=== PATIENT | female | born 1990 | race Caucasian/White ===

== ENCOUNTER 2017-04-07 13:51 | Emergency (ER) | payer OTHER ==
[2017-04-07] MEDS: ACETAMINOPHEN 325 MG TAB PO (17:10)
[2017-04-07] MEDS: METOCLOPRAMIDE 10 MG TAB PO (17:11)
[2017-04-07 17:17] LABS: URINE BLOOD (Dip) POC Negative (NEGATIVE); URINE GLUCOSE (Dip) POC Negative (NEGATIVE); URINE KETONES (Dip) POC Negative (NEGATIVE); URINE LEUKOCYTE EST (Dip) POC 1+ (NEGATIVE); URINE NITRITE (Dip) POC Negative (NEGATIVE); URINE TOTAL PROTEIN POC Negative (NEGATIVE)
[2017-04-07 17:17] LABS: URINE PH (Dip) POC 5.5 (5.0-8.5)
== END 2017-04-07 18:59 | disposition home or self-care (01) ==
LOC: FTE 13:51
DX: R11.2 Nausea with vomiting, unspecified (principal); R19.7 Diarrhea, unspecified
CPT/HCPCS: 81003; 99284

== ENCOUNTER 2017-12-01 19:01 | Emergency (ER) | payer OTHER ==
[2017-12-01] MEDS: ACETAMINOPHEN 500 MG TAB PO (22:44)
[2017-12-01] MEDS: FAMOTIDINE 20 MG TAB PO (22:44)
[2017-12-01] MEDS: ONDANSETRON (ODT) 4 MG TAB ODT (22:44)
[2017-12-01 22:56] LABS: ADD MAN DIFF? NO
[2017-12-01 22:59] LABS: WHITE BLOOD COUNT 12.1 10^3/ul (4.8-10.8)
[2017-12-01 22:59] LABS: BASOPHIL # 0.1 10^3/ul (0.0-0.1); BASOPHILS % 0.6 % (0.0-2.0); EOSINOPHILS # 0.5 10^3/ul (0.0-0.5); EOSINOPHILS % 3.7 % (0.0-7.0); HEMATOCRIT 39.8 % (37.0-47.0); HEMOGLOBIN 13.3 g/dl (12.0-16.0); LYMPHOCYTES # 4.5 10^3/ul (0.8-2.9); LYMPHOCYTES % 37.4 % (15.0-51.0); MEAN CORPUSCULAR HEMOGLOBIN 28.9 pg (29.0-33.0); MEAN CORPUSCULAR HGB CONC 33.4 g/dl (32.0-37.0); MEAN CORPUSCULAR VOLUME 86.3 fl (82.0-101.0); MEAN PLATELET VOLUME 11.1 fl (7.4-10.4); MONOCYTE # 0.8 10^3/ul (0.3-0.9); MONOCYTES % 6.2 % (0.0-11.0); NEUTROPHIL # 6.3 10^3/ul (1.6-7.5); NEUTROPHILS % 51.9 % (39.0-77.0); PLATELET COUNT 288 10^3/UL (140-415); RED BLOOD COUNT 4.61 10^6/ul (4.20-5.40); RED CELL DISTRIBUTION WIDTH 12.4 % (11.5-14.5)
[2017-12-01 23:18] LABS: ADD UMIC YES; UR ASCORBIC ACID NEGATIVE (NEGATIVE); UR BACTERIA MODERATE /HPF (NONE SEEN); UR BILIRUBIN (Dip) NEGATIVE (NEGATIVE); UR BLOOD (Dip) NEGATIVE (NEGATIVE); UR CLARITY SLIGHTLY CLOUDY (CLEAR); UR COLOR YELLOW (YELLOW); UR GLUCOSE (Dip) NEGATIVE (NEGATIVE); UR KETONES (Dip) NEGATIVE (NEGATIVE); UR LEUKOCYTE ESTERASE (Dip) 2+ Leu/ul (NEGATIVE); UR MUCUS MANY /HPF (NONE SEEN); UR NITRITE (Dip) POSITIVE (NEGATIVE); UR RBC 1 /HPF (0-5); UR SPECIFIC GRAVITY (Dip) 1.027 (1.003-1.030); UR SQUAMOUS EPITHELIAL CELL FEW /HPF (FEW); UR TOTAL PROTEIN (Dip) NEGATIVE (NEGATIVE); UR UROBILINOGEN (Dip) 1+ mg/dL (NEGATIVE); UR WBC 15 /HPF (0-5)
== END 2017-12-02 01:54 | disposition home or self-care (01) ==
LOC: FTE 12-02 01:54
DX: O23.11 Infections of bladder in pregnancy, first trimester (principal); R10.2 Pelvic and perineal pain; Z3A.01 Less than 8 weeks gestation of pregnancy
CPT/HCPCS: 36415; 76801; 81001; 81025; 84702; 85025; 86900; 86901; 99284-25

== ENCOUNTER 2018-04-24 16:49 | Inpatient (IN) | payer OTHER ==
[2018-04-24 18:34] LABS: ADD MAN DIFF? NO
[2018-04-24 18:41] LABS: BASOPHILS % 0.4 % (0.0-2.0); EOSINOPHILS # 0.1 10^3/ul (0.0-0.5); EOSINOPHILS % 0.6 % (0.0-7.0); HEMATOCRIT 32.4 % (37.0-47.0); HEMOGLOBIN 10.9 g/dl (12.0-16.0); LYMPHOCYTES # 0.8 10^3/ul (0.8-2.9); LYMPHOCYTES % 7.1 % (15.0-51.0); MEAN CORPUSCULAR HEMOGLOBIN 29.5 pg (29.0-33.0); MEAN CORPUSCULAR HGB CONC 33.6 g/dl (32.0-37.0); MEAN CORPUSCULAR VOLUME 87.6 fl (82.0-101.0); MEAN PLATELET VOLUME 11.5 fl (7.4-10.4); MONOCYTE # 0.6 10^3/ul (0.3-0.9); MONOCYTES % 5.4 % (0.0-11.0); NEUTROPHIL # 9.3 10^3/ul (1.6-7.5); NEUTROPHILS % 85.9 % (39.0-77.0); PLATELET COUNT 207 10^3/UL (140-415); RED CELL DISTRIBUTION WIDTH 12.5 % (11.5-14.5)
[2018-04-24 18:41] LABS: WHITE BLOOD COUNT 10.9 10^3/ul (4.8-10.8)
[2018-04-24 19:01] LABS: ALANINE AMINOTRANSFERASE 27 IU/L (13-69); ALBUMIN 3.5 g/dl (3.3-4.9); ALBUMIN/GLOBULIN RATIO 1.09; ALKALINE PHOSPHATASE 130 IU/L (42-121); ANION GAP 8 (5-13); ASPARTATE AMINO TRANSFERASE 26 IU/L (15-46); BILIRUBIN,INDIRECT 0.2 mg/dl (0-1.1); BILIRUBIN,TOTAL 0.2 mg/dl (0.2-1.3); BLOOD UREA NITROGEN 6 mg/dl (7-20); CALCIUM 8.9 mg/dl (8.4-10.2); CARBON DIOXIDE 22 mmol/L (21-31); CHLORIDE 104 mmol/L (97-110); CREATININE 0.41 mg/dl (0.44-1.00); Estimated GFR > 60 mL/min (>60); GLUCOSE 91 mg/dl (70-220); POTASSIUM 3.7 mmol/L (3.5-5.1); SODIUM 134 mmol/L (135-144); TOTAL PROTEIN 6.7 g/dl (6.1-8.1)
[2018-04-24 19:04] LABS: INR 1.02; PROTIME 13.5 Sec (11.9-14.9); PT RATIO 1.1; UR BACTERIA FEW /HPF (NONE SEEN); UR RBC 0 /HPF (0-5); UR WBC 1 /HPF (0-5)
[2018-04-24 19:05] LABS: PARTIAL THROMBOPLASTIN TIME 30.3 Sec (23.0-35.0)
[2018-04-24] MEDS: LACTATED RINGER'S 1,000 ML IV ×2 (19:14→19:17)
[2018-04-24 19:24] LABS: ADD UMIC YES; UR ASCORBIC ACID 20 mg/dL (NEGATIVE); UR BILIRUBIN (Dip) NEGATIVE (NEGATIVE); UR BLOOD (Dip) NEGATIVE (NEGATIVE); UR CLARITY CLEAR (CLEAR); UR COLOR YELLOW (YELLOW); UR GLUCOSE (Dip) NEGATIVE (NEGATIVE); UR KETONES (Dip) TRACE mg/dL (NEGATIVE); UR LEUKOCYTE ESTERASE (Dip) NEGATIVE Leu/ul (NEGATIVE); UR NITRITE (Dip) POSITIVE (NEGATIVE); UR SPECIFIC GRAVITY (Dip) 1.013 (1.003-1.030); UR TOTAL PROTEIN (Dip) NEGATIVE (NEGATIVE); UR UROBILINOGEN (Dip) 1+ mg/dL (NEGATIVE)
[2018-04-24] MEDS: FAMOTIDINE 20 MG INJ IV (21:14)
[2018-04-24 21:18] LABS: RAPID PLASMA REAGIN NONREACTIVE (NR)
[2018-04-24] MEDS: DEXTROSE 5%-0.45% NACL 1,000 ML IV (21:19)
[2018-04-24] MEDS: ONDANSETRON 4 MG INJ IV (21:26)
[2018-04-24] MEDS: CEFTRIAXONE 1 GM/50 ML (PMX) 50 ML IVPB (22:13)
[2018-04-24] MEDS: ACETAMINOPHEN 1000MG/100ML IV 100 ML IVPB (23:32)
[2018-04-25] MEDS: LACTATED RINGER'S 1,000 ML IV ×4 (01:07→18:00)
[2018-04-25] MEDS: DEXTROSE 5%-0.45% NACL 1,000 ML IV ×5 (04:47→15:38)
[2018-04-25] MEDS: FAMOTIDINE 20 MG INJ IV (09:09)
[2018-04-25] MEDS: ACETAMINOPHEN 325 MG TAB PO ×2 (12:27→19:36)
[2018-04-25 14:41] LABS: ADD UMIC NO; UR ASCORBIC ACID NEGATIVE (NEGATIVE); UR BILIRUBIN (Dip) NEGATIVE (NEGATIVE); UR BLOOD (Dip) NEGATIVE (NEGATIVE); UR CLARITY CLEAR (CLEAR); UR COLOR YELLOW (YELLOW); UR GLUCOSE (Dip) NEGATIVE (NEGATIVE); UR KETONES (Dip) NEGATIVE (NEGATIVE); UR LEUKOCYTE ESTERASE (Dip) NEGATIVE Leu/ul (NEGATIVE); UR NITRITE (Dip) NEGATIVE (NEGATIVE); UR SPECIFIC GRAVITY (Dip) 1.009 (1.003-1.030); UR TOTAL PROTEIN (Dip) NEGATIVE (NEGATIVE); UR UROBILINOGEN (Dip) 2+ mg/dL (NEGATIVE)
[2018-04-25] MEDS: AZITHROMYCIN 250 MG TAB PO (18:20)
[2018-04-25] MEDS: GUAIFENESIN/DM 5ML CUP PO (20:19)
[2018-04-25] MEDS: OSELTAMIVIR 75 MG CAP PO (20:47)
[2018-04-25] MEDS: FAMOTIDINE 20 MG TAB PO (20:47)
[2018-04-25] MEDS: CEFTRIAXONE 1 GM/50 ML (PMX) 50 ML IVPB (22:03)
[2018-04-25 23:00] LABS: LACTIC ACID 1.4 mmol/L (0.5-2.0)
[2018-04-26] MEDS: DEXTROSE 5%-0.45% NACL 1,000 ML IV ×2 (00:06→08:39)
[2018-04-26] MEDS: LACTATED RINGER'S 1,000 ML IV (06:20)
[2018-04-26] MEDS: FAMOTIDINE 20 MG TAB PO (08:39)
[2018-04-26] MEDS: OSELTAMIVIR 75 MG CAP PO (08:39)
[2018-04-26] MEDS: GUAIFENESIN/DM 5ML CUP PO (12:52)
[2018-04-26] MEDS ORDERED: AZITHROMYCIN 250 MG TAB PO (18:00)
== END 2018-04-26 15:30 | disposition home or self-care (01) | DRG 833 ==
LOC: OBT 16:49 → L-D 16:51 → OBT 20:25 → L-D 20:25
DX: O98.513 Other viral diseases complicating pregnancy, third trimester (principal); J11.1 Influenza due to unidentified influenza virus with other respiratory manifestations; Z3A.29 29 weeks gestation of pregnancy
CPT/HCPCS: 71045; 76815; 76817; 76818; 80053; 81001; 81003; 83605; 85025; 85610; 85730; 86592; 86850; 86900; 86901; 87040; 87086; 87400; 96360; 96361

== ENCOUNTER 2018-05-13 08:26 | Emergency (ER) | payer OTHER | END 2018-05-13 09:30 | disposition home or self-care (01) | LOC: FTE 08:26 | DX: O99.713 Diseases of the skin and subcutaneous tissue complicating pregnancy, third trimester (principal); L50.9 Urticaria, unspecified; O99.513 Diseases of the respiratory system complicating pregnancy, third trimester; J45.909 Unspecified asthma, uncomplicated; Z3A.32 32 weeks gestation of pregnancy | CPT/HCPCS: 99283; Z7502 ==

== ENCOUNTER 2018-05-13 09:36 | Outpatient (CLI) | payer OTHER ==
[2018-05-13] MEDS: ACETAMINOPHEN 325 MG TAB PO (10:45)
[2018-05-13 10:54] LABS: ADD MAN DIFF? NO
[2018-05-13 10:56] LABS: BASOPHILS % 0.4 % (0.0-2.0); EOSINOPHILS # 0.2 10^3/ul (0.0-0.5); EOSINOPHILS % 2.5 % (0.0-7.0); HEMATOCRIT 34.7 % (37.0-47.0); HEMOGLOBIN 11.7 g/dl (12.0-16.0); LYMPHOCYTES # 2.3 10^3/ul (0.8-2.9); MEAN CORPUSCULAR HEMOGLOBIN 28.6 pg (29.0-33.0); MEAN CORPUSCULAR HGB CONC 33.7 g/dl (32.0-37.0); MEAN CORPUSCULAR VOLUME 84.8 fl (82.0-101.0); MEAN PLATELET VOLUME 12.2 fl (7.4-10.4); MONOCYTE # 0.5 10^3/ul (0.3-0.9); MONOCYTES % 6.7 % (0.0-11.0); NEUTROPHIL # 4.6 10^3/ul (1.6-7.5); PLATELET COUNT 225 10^3/UL (140-415); RED BLOOD COUNT 4.09 10^6/ul (4.20-5.40); RED CELL DISTRIBUTION WIDTH 12.6 % (11.5-14.5)
[2018-05-13 10:56] LABS: WHITE BLOOD COUNT 7.7 10^3/ul (4.8-10.8)
[2018-05-13 11:17] LABS: ADD UMIC YES; UR ASCORBIC ACID NEGATIVE (NEGATIVE); UR BACTERIA FEW /HPF (NONE SEEN); UR BILIRUBIN (Dip) NEGATIVE (NEGATIVE); UR BLOOD (Dip) NEGATIVE (NEGATIVE); UR CLARITY CLEAR (CLEAR); UR COLOR YELLOW (YELLOW); UR GLUCOSE (Dip) NEGATIVE (NEGATIVE); UR KETONES (Dip) NEGATIVE (NEGATIVE); UR LEUKOCYTE ESTERASE (Dip) 2+ Leu/ul (NEGATIVE); UR NITRITE (Dip) NEGATIVE (NEGATIVE); UR RBC 1 /HPF (0-5); UR SQUAMOUS EPITHELIAL CELL FEW /HPF (FEW); UR TOTAL PROTEIN (Dip) NEGATIVE (NEGATIVE); UR UROBILINOGEN (Dip) 1+ mg/dL (NEGATIVE); UR WBC 11 /HPF (0-5)
[2018-05-13 11:18] LABS: ALANINE AMINOTRANSFERASE 28 IU/L (13-69); ALBUMIN 3.6 g/dl (3.3-4.9); ALBUMIN/GLOBULIN RATIO 1.02; ALKALINE PHOSPHATASE 182 IU/L (42-121); ANION GAP 9 (5-13); ASPARTATE AMINO TRANSFERASE 26 IU/L (15-46); BILIRUBIN,INDIRECT 0.1 mg/dl (0-1.1); BILIRUBIN,TOTAL 0.1 mg/dl (0.2-1.3); BLOOD UREA NITROGEN 9 mg/dl (7-20); CALCIUM 9.3 mg/dl (8.4-10.2); CARBON DIOXIDE 21 mmol/L (21-31); CHLORIDE 108 mmol/L (97-110); CREATININE 0.41 mg/dl (0.44-1.00); Estimated GFR > 60 mL/min (>60); GLUCOSE 75 mg/dl (70-220); POTASSIUM 3.7 mmol/L (3.5-5.1); SODIUM 138 mmol/L (135-144); TOTAL PROTEIN 7.1 g/dl (6.1-8.1); URIC ACID 5.4 mg/dl (3.1-7.9)
== END 2018-05-13 11:55 | disposition home or self-care (01) ==
LOC: OBT 09:36 → L-D 09:36 → OBT 11:55
DX: O26.893 Other specified pregnancy related conditions, third trimester (principal); R51 Headache; D70.8 Other neutropenia; R21 Rash and other nonspecific skin eruption; Z3A.31 31 weeks gestation of pregnancy
CPT/HCPCS: 76815; 80053; 81001; 84560; 85025; 87086

== ENCOUNTER 2018-07-06 12:21 | Inpatient (IN) | payer OTHER ==
[2018-07-06] MEDS ORDERED: LIDOCAINE 1% (MPF) 30 ML INJ INJ (15:30)
[2018-07-06] MEDS ORDERED: MISOPROSTOL 200 MCG TAB PR (15:30)
[2018-07-06] MEDS ORDERED: CARBOPROST 250 MCG INJ IM (15:30)
[2018-07-06] MEDS ORDERED: OXYTOCIN 30 UNITS/LR 500 ML IV ×3 (15:30)
[2018-07-06] MEDS ORDERED: METHYLERGONOVINE 0.2 MG INJ IM (15:30)
[2018-07-06 16:23] LABS: ADD MAN DIFF? NO
[2018-07-06] MEDS: LACTATED RINGER'S 1,000 ML IV (16:24)
[2018-07-06 16:26] LABS: ABNORMAL IP MESSAGE 1; BASOPHIL # 0.1 10^3/ul (0.0-0.1); BASOPHILS % 0.6 % (0.0-2.0); EOSINOPHILS # 0.3 10^3/ul (0.0-0.5); EOSINOPHILS % 4.1 % (0.0-7.0); HEMATOCRIT 36.6 % (37.0-47.0); HEMOGLOBIN 12.3 g/dl (12.0-16.0); LYMPHOCYTES # 2.8 10^3/ul (0.8-2.9); LYMPHOCYTES % 35.2 % (15.0-51.0); MEAN CORPUSCULAR HGB CONC 33.6 g/dl (32.0-37.0); MEAN CORPUSCULAR VOLUME 83.2 fl (82.0-101.0); MEAN PLATELET VOLUME 13.5 fl (7.4-10.4); MONOCYTE # 0.4 10^3/ul (0.3-0.9); MONOCYTES % 5.1 % (0.0-11.0); NEUTROPHIL # 4.4 10^3/ul (1.6-7.5); NEUTROPHILS % 54.8 % (39.0-77.0); PLATELET COUNT 172 10^3/UL (140-415); RED CELL DISTRIBUTION WIDTH 13.2 % (11.5-14.5)
[2018-07-06 16:38] LABS: POSITIVE DIFF @See below
[2018-07-06 16:46] LABS: INR 0.89; PARTIAL THROMBOPLASTIN TIME 27.5 Sec (23.0-35.0); PROTIME 12.2 Sec (11.9-14.9)
[2018-07-07] MEDS: LACTATED RINGER'S 1,000 ML IV ×4 (00:42→17:15)
[2018-07-07] MEDS: OXYTOCIN 30 UNITS/LR 500 ML IV ×2 (09:18→18:01)
[2018-07-07] MEDS ORDERED: FENTAnyl 2MCG/ML-ROPIV 0.2% 100 ML (16:32)
[2018-07-07] MEDS ORDERED: FENTAnyl 2MCG/ML-ROPIV 0.2% 100 ML BAG EPI (17:00)
[2018-07-07] MEDS ORDERED: NALOXONE (0.4 MG/ML) INJ IV (17:00)
[2018-07-07] MEDS: MINERAL OIL LIGHT 10 ML VIAL TOP (17:48)
[2018-07-07] MEDS: KETOROLAC 30 MG INJ IV (18:01)
[2018-07-07] MEDS ORDERED: HYDROCODONE/APAP (5/325) TAB PO (21:00)
[2018-07-07] MEDS ORDERED: METHYLERGONOVINE 0.2 MG INJ IM (21:00)
[2018-07-07] MEDS ORDERED: OXYTOCIN 30 UNITS/LR 500 ML IV (21:00)
[2018-07-07] MEDS ORDERED: MISOPROSTOL 200 MCG TAB PR (21:00)
[2018-07-07] MEDS ORDERED: ZOLPIDEM 5 MG TAB PO (21:00)
[2018-07-07] MEDS ORDERED: CARBOPROST 250 MCG INJ IM (21:00)
[2018-07-07] MEDS: MAGNESIUM HYDROXIDE 30ML CUP PO (22:19)
[2018-07-07] MEDS: SENNA/DOCUSATE NA (8.6MG/50MG) TAB PO (22:19)
[2018-07-07] MEDS: HYDROCODONE/APAP (5/325) TAB PO (22:20)
[2018-07-07 22:24] LABS: RAPID PLASMA REAGIN NONREACTIVE (NR)
[2018-07-07] MEDS: LACTATED RINGER'S 1,000 ML IV* (23:55)
[2018-07-07] MEDS: IBUPROFEN 600 MG TAB PO (23:57)
[2018-07-07] MEDS: WITCH HAZEL/GLYCERIN PAD PR (23:57)
[2018-07-07] MEDS: CEPHALEXIN 500 MG CAP PO (23:57)
[2018-07-07] MEDS: BENZOCAINE 20% 56 ML SPRAY TOP (23:57)
[2018-07-07] MEDS: LANOLIN HPA 1 PKT TOP (23:58)
[2018-07-07] MEDS: DIBUCAINE 1% 30 GM OINT TOP (23:58)
[2018-07-08] MEDS: IBUPROFEN 600 MG TAB PO ×4 (00:25→17:12)
[2018-07-08] MEDS: LACTATED RINGER'S 1,000 ML IV* ×3 (04:42→20:42)
[2018-07-08] MEDS: CEPHALEXIN 500 MG CAP PO ×3 (06:14→17:12)
[2018-07-08 08:30] LABS: ADD MAN DIFF? NO
[2018-07-08 08:35] LABS: ABNORMAL IP MESSAGE 1; BASOPHIL # 0.1 10^3/ul (0.0-0.1); BASOPHILS % 0.6 % (0.0-2.0); EOSINOPHILS # 0.4 10^3/ul (0.0-0.5); EOSINOPHILS % 3.4 % (0.0-7.0); HEMATOCRIT 32.2 % (37.0-47.0); HEMOGLOBIN 10.5 g/dl (12.0-16.0); LYMPHOCYTES # 3.8 10^3/ul (0.8-2.9); LYMPHOCYTES % 33.9 % (15.0-51.0); MEAN CORPUSCULAR HEMOGLOBIN 27.7 pg (29.0-33.0); MEAN CORPUSCULAR HGB CONC 32.6 g/dl (32.0-37.0); MEAN PLATELET VOLUME 13.6 fl (7.4-10.4); MONOCYTE # 0.5 10^3/ul (0.3-0.9); MONOCYTES % 4.8 % (0.0-11.0); NEUTROPHIL # 6.4 10^3/ul (1.6-7.5); NEUTROPHILS % 56.9 % (39.0-77.0); PLATELET COUNT 149 10^3/UL (140-415); RED BLOOD COUNT 3.79 10^6/ul (4.20-5.40); RED CELL DISTRIBUTION WIDTH 13.3 % (11.5-14.5)
[2018-07-08 08:35] LABS: WHITE BLOOD COUNT 11.3 10^3/ul (4.8-10.8)
[2018-07-08 08:38] LABS: POSITIVE DIFF @See below
[2018-07-08] MEDS: MAGNESIUM HYDROXIDE 30ML CUP PO ×2 (08:41→21:21)
[2018-07-08] MEDS: SENNA/DOCUSATE NA (8.6MG/50MG) TAB PO ×2 (08:41→21:21)
[2018-07-09] MEDS: CEPHALEXIN 500 MG CAP PO ×4 (02:03→17:43)
[2018-07-09] MEDS: IBUPROFEN 600 MG TAB PO ×4 (02:03→18:00)
[2018-07-09] MEDS: LACTATED RINGER'S 1,000 ML IV* ×3 (04:42→18:22)
[2018-07-09] MEDS: VARICELLA VACCINE LIVE/PF 1,350 UNIT/0.5 ML ML SC* (08:05)
[2018-07-09] MEDS: MEASLES,MUMPS,RUBELLA VACCINE INJ SC* (08:05)
[2018-07-09] MEDS: MAGNESIUM HYDROXIDE 30ML CUP PO (09:34)
[2018-07-09] MEDS: SENNA/DOCUSATE NA (8.6MG/50MG) TAB PO (09:34)
[2018-07-09] MEDS: HYDROCODONE/APAP (5/325) TAB PO (09:35)
[2018-07-09] MEDS: DIPHTH/TET/ACEL PERTUSS (ADULT) 0.5 ML VIAL IM* (09:56)
== END 2018-07-09 18:20 | disposition home or self-care (01) | DRG 807 ==
LOC: OBT 12:21 → L-D 12:22 → OBT 12:37 → L-D 12:41 → PP1 07-07 20:14
PROVIDERS: Obstetrics & Gynecology
PROC: 10E0XZZ Delivery of Products of Conception, External Approach (ICD-10-PCS; principal; 2018-07-07)
DX: O80 Encounter for full-term uncomplicated delivery (principal); Z37.0 Single live birth; Z3A.39 39 weeks gestation of pregnancy
CPT/HCPCS: 62322; 76815; 85025; 85610; 85730; 86592; 86850; 86900; 86901; 90716

== ENCOUNTER 2018-07-30 13:29 | Emergency (ER) | payer OTHER ==
[2018-07-30] MEDS: KETOROLAC 30 MG INJ IM (14:36)
== END 2018-07-30 14:57 | disposition home or self-care (01) ==
LOC: FTE 13:29
DX: M25.512 Pain in left shoulder (principal); M62.838 Other muscle spasm
CPT/HCPCS: 81025; 96372; 99284-25

== ENCOUNTER 2018-11-02 11:59 | Emergency (ER) | payer OTHER ==
[2018-11-02 14:02] LABS: URINE BLOOD (Dip) POC 2+ (NEGATIVE); URINE GLUCOSE (Dip) POC Negative (NEGATIVE); URINE KETONES (Dip) POC Negative (NEGATIVE); URINE LEUKOCYTE EST (Dip) POC Negative (NEGATIVE); URINE NITRITE (Dip) POC Negative (NEGATIVE); URINE TOTAL PROTEIN POC Negative (NEGATIVE)
[2018-11-02] MEDS: KETOROLAC 30 MG INJ IV (14:06)
[2018-11-02] MEDS: SOD CHLORIDE 0.9% 1,000 ML IV (14:06)
[2018-11-02] MEDS: LORAZEPAM 2 MG INJ IV (14:07)
[2018-11-02 14:12] LABS: ADD MAN DIFF? NO
[2018-11-02 14:15] LABS: BASOPHILS % 0.4 % (0.0-2.0); EOSINOPHILS # 0.4 10^3/ul (0.0-0.5); EOSINOPHILS % 4.2 % (0.0-7.0); HEMATOCRIT 40.4 % (37.0-47.0); HEMOGLOBIN 13.5 g/dl (12.0-16.0); LYMPHOCYTES # 2.9 10^3/ul (0.8-2.9); LYMPHOCYTES % 33.6 % (15.0-51.0); MEAN CORPUSCULAR HEMOGLOBIN 28.3 pg (29.0-33.0); MEAN CORPUSCULAR HGB CONC 33.4 g/dl (32.0-37.0); MEAN CORPUSCULAR VOLUME 84.7 fl (82.0-101.0); MEAN PLATELET VOLUME 11.2 fl (7.4-10.4); MONOCYTE # 0.6 10^3/ul (0.3-0.9); MONOCYTES % 7.5 % (0.0-11.0); NEUTROPHIL # 4.6 10^3/ul (1.6-7.5); NEUTROPHILS % 54.1 % (39.0-77.0); PLATELET COUNT 283 10^3/UL (140-415); RED BLOOD COUNT 4.77 10^6/ul (4.20-5.40); RED CELL DISTRIBUTION WIDTH 12.6 % (11.5-14.5)
[2018-11-02 14:15] LABS: WHITE BLOOD COUNT 8.5 10^3/ul (4.8-10.8)
[2018-11-02 14:31] LABS: ADD UMIC YES; UR ASCORBIC ACID NEGATIVE (NEGATIVE); UR BILIRUBIN (Dip) NEGATIVE (NEGATIVE); UR BLOOD (Dip) 2+ mg/dL (NEGATIVE); UR CLARITY SLIGHTLY CLOUDY (CLEAR); UR COLOR YELLOW (YELLOW); UR GLUCOSE (Dip) NEGATIVE (NEGATIVE); UR KETONES (Dip) NEGATIVE (NEGATIVE); UR LEUKOCYTE ESTERASE (Dip) TRACE Leu/ul (NEGATIVE); UR NITRITE (Dip) NEGATIVE (NEGATIVE); UR RBC 1 /HPF (0-5); UR SPECIFIC GRAVITY (Dip) 1.024 (1.003-1.030); UR SQUAMOUS EPITHELIAL CELL MODERATE /HPF (FEW); UR TOTAL PROTEIN (Dip) NEGATIVE (NEGATIVE); UR UROBILINOGEN (Dip) NEGATIVE (NEGATIVE); UR WBC 2 /HPF (0-5)
[2018-11-02 14:39] LABS: ALANINE AMINOTRANSFERASE 44 IU/L (13-69); ALBUMIN 4.6 g/dl (3.3-4.9); ALBUMIN/GLOBULIN RATIO 1.35; ALKALINE PHOSPHATASE 97 IU/L (42-121); ANION GAP 11 (5-13); ASPARTATE AMINO TRANSFERASE 28 IU/L (15-46); BILIRUBIN,INDIRECT 0.6 mg/dl (0-1.1); BILIRUBIN,TOTAL 0.6 mg/dl (0.2-1.3); BLOOD UREA NITROGEN 13 mg/dl (7-20); CALCIUM 9.9 mg/dl (8.4-10.2); CARBON DIOXIDE 27 mmol/L (21-31); CHLORIDE 103 mmol/L (97-110); CREATININE 0.52 mg/dl (0.44-1.00); Estimated GFR > 60 mL/min (>60); GLUCOSE 93 mg/dl (70-220); POTASSIUM 4.1 mmol/L (3.5-5.1); SODIUM 141 mmol/L (135-144)
== END 2018-11-02 15:11 | disposition home or self-care (01) ==
LOC: FTE 11:59
DX: F41.9 Anxiety disorder, unspecified (principal)
CPT/HCPCS: 36415; 80053; 81001; 81003; 81025; 85025; 93005; 96361; 96374; 96375; 99284-25

== ENCOUNTER 2018-11-18 19:56 | Emergency (ER) | payer OTHER ==
[2018-11-18] MEDS: SOD CHLORIDE 0.9% 1,000 ML IV (21:57)
[2018-11-18] MEDS: ONDANSETRON 4 MG INJ IV (21:58)
[2018-11-18 22:14] LABS: ADD MAN DIFF? NO
[2018-11-18 22:16] LABS: BASOPHILS % 0.4 % (0.0-2.0); EOSINOPHILS # 0.6 10^3/ul (0.0-0.5); HEMATOCRIT 39.2 % (37.0-47.0); LYMPHOCYTES # 3.6 10^3/ul (0.8-2.9); LYMPHOCYTES % 37.6 % (15.0-51.0); MEAN CORPUSCULAR HEMOGLOBIN 27.7 pg (29.0-33.0); MEAN CORPUSCULAR HGB CONC 33.2 g/dl (32.0-37.0); MEAN CORPUSCULAR VOLUME 83.4 fl (82.0-101.0); MONOCYTE # 0.9 10^3/ul (0.3-0.9); MONOCYTES % 9.1 % (0.0-11.0); NEUTROPHIL # 4.4 10^3/ul (1.6-7.5); NEUTROPHILS % 46.7 % (39.0-77.0); PLATELET COUNT 306 10^3/UL (140-415)
[2018-11-18 22:16] LABS: WHITE BLOOD COUNT 9.5 10^3/ul (4.8-10.8)
[2018-11-18 22:34] LABS: ALANINE AMINOTRANSFERASE 47 IU/L (13-69); ALBUMIN 4.3 g/dl (3.3-4.9); ALBUMIN/GLOBULIN RATIO 1.26; ALKALINE PHOSPHATASE 109 IU/L (42-121); ANION GAP 7 (5-13); ASPARTATE AMINO TRANSFERASE 26 IU/L (15-46); BILIRUBIN,INDIRECT 0.1 mg/dl (0-1.1); BILIRUBIN,TOTAL 0.1 mg/dl (0.2-1.3); BLOOD UREA NITROGEN 15 mg/dl (7-20); CALCIUM 9.4 mg/dl (8.4-10.2); CARBON DIOXIDE 27 mmol/L (21-31); CHLORIDE 104 mmol/L (97-110); CREATININE 0.58 mg/dl (0.44-1.00); Estimated GFR > 60 mL/min (>60); GLUCOSE 91 mg/dl (70-220); LIPASE 90 U/L (23-300); POTASSIUM 3.8 mmol/L (3.5-5.1); SODIUM 138 mmol/L (135-144); TOTAL PROTEIN 7.7 g/dl (6.1-8.1)
[2018-11-18 22:42] LABS: URINE PH (Dip) POC 6.5 (5.0-8.5)
[2018-11-18 22:42] LABS: URINE BLOOD (Dip) POC Negative (NEGATIVE); URINE GLUCOSE (Dip) POC Negative (NEGATIVE); URINE KETONES (Dip) POC Negative (NEGATIVE); URINE LEUKOCYTE EST (Dip) POC 2+ (NEGATIVE); URINE NITRITE (Dip) POC Negative (NEGATIVE); URINE TOTAL PROTEIN POC Negative (NEGATIVE)
[2018-11-18] MEDS: KETOROLAC 15 MG INJ IV (22:49)
[2018-11-18 23:05] LABS: ADD UMIC YES; UR ASCORBIC ACID NEGATIVE (NEGATIVE); UR BACTERIA FEW /HPF (NONE SEEN); UR BILIRUBIN (Dip) NEGATIVE (NEGATIVE); UR BLOOD (Dip) NEGATIVE (NEGATIVE); UR CLARITY CLOUDY (CLEAR); UR COLOR YELLOW (YELLOW); UR GLUCOSE (Dip) NEGATIVE (NEGATIVE); UR KETONES (Dip) NEGATIVE (NEGATIVE); UR LEUKOCYTE ESTERASE (Dip) 3+ Leu/ul (NEGATIVE); UR NITRITE (Dip) NEGATIVE (NEGATIVE); UR RBC 3 /HPF (0-5); UR SQUAMOUS EPITHELIAL CELL MODERATE /HPF (FEW); UR TOTAL PROTEIN (Dip) NEGATIVE (NEGATIVE); UR UROBILINOGEN (Dip) NEGATIVE (NEGATIVE); UR WBC 24 /HPF (0-5)
[2018-11-21 18:54] LABS: URINE PH (Dip) POC 6.5 (5.0-8.5)
[2018-11-21 18:54] LABS: URINE BLOOD (Dip) POC Negative (NEGATIVE); URINE GLUCOSE (Dip) POC Negative (NEGATIVE); URINE KETONES (Dip) POC Negative (NEGATIVE); URINE LEUKOCYTE EST (Dip) POC 2+ (NEGATIVE); URINE NITRITE (Dip) POC Negative (NEGATIVE); URINE TOTAL PROTEIN POC Negative (NEGATIVE)
== END 2018-11-18 23:55 | disposition home or self-care (01) ==
LOC: FTE 23:55
DX: K80.50 Calculus of bile duct without cholangitis or cholecystitis without obstruction (principal); J45.909 Unspecified asthma, uncomplicated; N30.00 Acute cystitis without hematuria
CPT/HCPCS: 36415; 76705; 80053; 81001; 81003; 81025; 83690; 85025; 96374; 96375; 99285-25

== ENCOUNTER 2018-11-27 17:36 | Emergency (ER) | payer OTHER ==
[2018-11-27 19:17] LABS: ADD MAN DIFF? NO
[2018-11-27] MEDS: SOD CHLORIDE 0.9% 1,000 ML IV (19:18)
[2018-11-27 19:20] LABS: BASOPHILS % 0.3 % (0.0-2.0); EOSINOPHILS # 0.5 10^3/ul (0.0-0.5); EOSINOPHILS % 4.9 % (0.0-7.0); HEMATOCRIT 40.9 % (37.0-47.0); HEMOGLOBIN 13.6 g/dl (12.0-16.0); LYMPHOCYTES # 3.6 10^3/ul (0.8-2.9); LYMPHOCYTES % 34.1 % (15.0-51.0); MEAN CORPUSCULAR HEMOGLOBIN 27.9 pg (29.0-33.0); MEAN CORPUSCULAR HGB CONC 33.3 g/dl (32.0-37.0); MEAN CORPUSCULAR VOLUME 83.8 fl (82.0-101.0); MEAN PLATELET VOLUME 11.3 fl (7.4-10.4); MONOCYTE # 0.7 10^3/ul (0.3-0.9); MONOCYTES % 6.9 % (0.0-11.0); NEUTROPHIL # 5.6 10^3/ul (1.6-7.5); NEUTROPHILS % 53.6 % (39.0-77.0); PLATELET COUNT 297 10^3/UL (140-415); RED BLOOD COUNT 4.88 10^6/ul (4.20-5.40); RED CELL DISTRIBUTION WIDTH 11.9 % (11.5-14.5)
[2018-11-27 19:20] LABS: WHITE BLOOD COUNT 10.5 10^3/ul (4.8-10.8)
[2018-11-27] MEDS: ONDANSETRON 4 MG INJ IV (19:20)
[2018-11-27] MEDS: KETOROLAC 30 MG INJ IV (19:29)
[2018-11-27 19:38] LABS: ADD UMIC YES; ALANINE AMINOTRANSFERASE 39 IU/L (13-69); ALBUMIN 4.3 g/dl (3.3-4.9); ALBUMIN/GLOBULIN RATIO 1.22; ALKALINE PHOSPHATASE 107 IU/L (42-121); ANION GAP 9 (5-13); ASPARTATE AMINO TRANSFERASE 27 IU/L (15-46); BILIRUBIN,INDIRECT 0.2 mg/dl (0-1.1); BILIRUBIN,TOTAL 0.2 mg/dl (0.2-1.3); BLOOD UREA NITROGEN 16 mg/dl (7-20); CALCIUM 9.4 mg/dl (8.4-10.2); CARBON DIOXIDE 26 mmol/L (21-31); CHLORIDE 104 mmol/L (97-110); CREATININE 0.52 mg/dl (0.44-1.00); Estimated GFR > 60 mL/min (>60); GLUCOSE 92 mg/dl (70-220); LIPASE 59 U/L (23-300); SODIUM 139 mmol/L (135-144); TOTAL PROTEIN 7.8 g/dl (6.1-8.1); UR ASCORBIC ACID NEGATIVE (NEGATIVE); UR BILIRUBIN (Dip) NEGATIVE (NEGATIVE); UR BLOOD (Dip) 3+ mg/dL (NEGATIVE); UR CLARITY SLIGHTLY CLOUDY (CLEAR); UR COLOR YELLOW (YELLOW); UR GLUCOSE (Dip) NEGATIVE (NEGATIVE); UR KETONES (Dip) NEGATIVE (NEGATIVE); UR LEUKOCYTE ESTERASE (Dip) NEGATIVE Leu/ul (NEGATIVE); UR MUCUS FEW /HPF (NONE SEEN); UR NITRITE (Dip) NEGATIVE (NEGATIVE); UR RBC > 182 /HPF (0-5); UR SPECIFIC GRAVITY (Dip) 1.027 (1.003-1.030); UR SQUAMOUS EPITHELIAL CELL FEW /HPF (FEW); UR TOTAL PROTEIN (Dip) NEGATIVE (NEGATIVE); UR UROBILINOGEN (Dip) NEGATIVE (NEGATIVE); UR WBC 8 /HPF (0-5)
[2018-11-27 19:45] LABS: POTASSIUM 3.8 mmol/L (3.5-5.1)
== END 2018-11-27 20:28 | disposition home or self-care (01) ==
LOC: FTE 17:36
DX: K80.20 Calculus of gallbladder without cholecystitis without obstruction (principal); J45.909 Unspecified asthma, uncomplicated
CPT/HCPCS: 36415; 76705; 80053; 81001; 81025; 83690; 85025; 96361; 96374; 96375; 99285-25

== ENCOUNTER 2018-12-12 01:00 | Emergency (ER) | payer SELFPAY, OTHER | END 2018-12-12 02:00 | disposition left against medical advice (07) | LOC: FTE 01:00 | DX: Z53.21 Procedure and treatment not carried out due to patient leaving prior to being seen by health care provider (principal) ==